=== PATIENT | male | born 1965 | race Caucasian/White ===

== ENCOUNTER 2018-03-09 18:37 | Emergency (ER) | payer MEDICARE, OTHER ==
[2018-03-09 19:10] LABS: POC GLUCOSE 392 mg/dL (70-99)
[2018-03-09 19:56] LABS: ADD MAN DIFF? NO
[2018-03-09] MEDS: IV NORMAL SALINE 1000ML BAG 1,000 ML IV ×2 (19:56→19:57)
[2018-03-09 19:58] LABS: BASO % 1 % (0-3); EOS # 0.2 x10^3/uL (0.0-0.7); EOS % 3 % (0-3); HEMATOCRIT 45.8 % (39.0-53.0); HEMOGLOBIN 15.6 g/dL (13.0-17.5); LYMPH % 23 % (24-48); MEAN CORPUSCULAR HEMOGLOBIN 28 pg (25-35); MEAN CORPUSCULAR HGB CONC 34 g/dL (31-37); MEAN CORPUSCULAR VOLUME 83 fL (79-100); MONO % 11 % (0-9); NEUT # 5.4 x10^3uL (1.8-7.7); NEUT % 62 % (31-73); PLATELET COUNT 212 x10^3/uL (140-400); RED CELL DISTRIBUTION WIDTH 13.8 % (11.5-14.5); WHITE BLOOD COUNT 8.7 x10^3/uL (4.0-11.0)
[2018-03-09 20:07] LABS: ANION GAP 13 (6-14); BLOOD UREA NITROGEN 24 mg/dL (8-26); BUN/CREATININE RATIO 17 (6-20); CALCIUM 8.7 mg/dL (8.5-10.1); CARBON DIOXIDE 23 mmol/L (21-32); CHLORIDE 96 mmol/L (98-107); CREATININE 1.4 mg/dL (0.7-1.3); GFR 52.8; GLUCOSE 380 mg/dL (70-99); POTASSIUM 4.2 mmol/L (3.5-5.1); SODIUM 132 mmol/L (136-145)
[2018-03-09 20:13] LABS: ALBUMIN 3.6 g/dL (3.4-5.0); ALBUMIN/GLOBULIN RATIO 1.1 (1.0-1.7); ALK PHOS 127 U/L (46-116); ALT (SGPT) 30 U/L (16-63); AST (SGOT) 14 U/L (15-37); LIPASE 188 U/L (73-393); TOTAL BILIRUBIN 0.3 mg/dL (0.2-1.0)
[2018-03-09 21:11] LABS: AGAP ISTAT 19 mmol/L (6-14); BUN ISTAT 21 mg/dL (8-26); CHLORIDE ISTAT 99 mmol/L (98-110); CREATININE ISTAT 1.1 mg/dL (0.5-1.4); GLUCOSE ISTAT 330 mg/dL (70-99); HEMATOCRIT ISTAT 42 % (37-52); HEMOGLOBIN ISTAT 14.3 g/dL (14-18); ION CA ISTAT 1.05 mmol/L (1.13-1.32); POTASSIUM ISTAT 3.9 mmol/L (3.5-5.0); SODIUM ISTAT 134 mmol/L (135-145); TOT CO2 ISTAT 21 mmol/L (23-32)
[2018-03-09] MEDS: INSULIN REGULAR 100 UNIT/ML 3ML VIAL. IV (21:23)
[2018-03-09 22:04] LABS: POC GLUCOSE 166 mg/dL (70-99)
== END 2018-03-09 22:30 | disposition home or self-care (01) ==
LOC: ER 18:37
DX: E11.65 Type 2 diabetes mellitus with hyperglycemia (principal); E78.00 Pure hypercholesterolemia, unspecified; E03.9 Hypothyroidism, unspecified; F20.9 Schizophrenia, unspecified; I48.91 Unspecified atrial fibrillation; K21.9 Gastro-esophageal reflux disease without esophagitis; I10 Essential (primary) hypertension; F41.9 Anxiety disorder, unspecified; Z95.0 Presence of cardiac pacemaker; Z88.8 Allergy status to other drugs, medicaments and biological substances
CPT/HCPCS: 36415; 80047; 80053; 82962; 83690; 85025; 96361; 96374; 99285-25; J1815; J7030

== ENCOUNTER → 2020-03-25 | Outpatient (CLI) | payer MEDICARE, OTHER ==
[2018-03-09 22:08] VITALS: BP 161/76
[~2020-03-25] MED LIST: ACET-1871 PO; ASPI325T8 PO; BUSP15TA PO; DEXT1DRO7 OP; DILT30TA26 PO; DIPH25TA24 PO; FINA5TAB4 PO; GUAI600T47 PO; HALO5AMP PO; INSU100I18 SQ; INSU100I27 SQ; LEVE500T6 PO; LEVO25TA4 PO; LIDO30CR TP; LINA5TAB PO; LISI10TA2 PO; MAGN400T22 PO; MELA1TAB13 PO; METO25TA4 PO; MULT-638 PO; PANT40TA77 PO; PRAV20TA PO; QUET100T4 PO; QUET300T89 PO; QUET50TA5 PO; SAXA5TAB PO; TAMS0.4C2 PO; TRAZ-123 PO
--- NOTE | 2020-03-25 13:16 | RAD ---
EXAM: Right shoulder, 3 views. HISTORY: Pain. COMPARISON: None. FINDINGS: 3 views of the right shoulder obtained. There is a chronic nonunited mid right clavicle fracture with nearly 2 shaft widths displacement along the fracture line. There is mild marginal humeral head spurring. There is partial visualization of cardiac pacemaker leads. There is degenerative facet arthropathy at the visualized cervical levels. There is calcified atherosclerotic plaque within the right carotid bifurcation. IMPRESSION: 1. Mild glenohumeral osteoarthritis. 2. Chronic nonunited right clavicle fracture. Electronically signed by: Sachi Lynne MD (03/25/2020 1:14 PM) [id number]
== END | disposition home or self-care (01) ==
LOC: LAB 10:41
PROVIDERS: ATTEND Family Medicine
DX: S42.001K Fracture of unspecified part of right clavicle, subsequent encounter for fracture with nonunion (principal); M19.011 Primary osteoarthritis, right shoulder; Z95.0 Presence of cardiac pacemaker; X58.XXXD Exposure to other specified factors, subsequent encounter
CPT/HCPCS: 73030